=== PATIENT | male | born 1995 | race Caucasian/White ===

== ENCOUNTER 2023-09-02 15:11 | Emergency (ER) | payer OTHER, SELFPAY ==
[2023-09-02 15:17] VITALS: BP 143/90; PULSE 93; RESP 18; TEMP 36.7; O2SAT 97; BMI 31.3
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
[2023-09-02] MEDS: Diphth,Pertus(ACell),Tet Adult 0.5 ML SYRINGE IM (16:21)
[2023-09-02] MEDS: Amoxicillin/Potassium Clav 875 MG TABLET PO (16:21)
[2023-09-02] MEDS: Ibuprofen 400 MG TABLET PO (16:21)
[2023-09-02 16:41] VITALS: BP 143/90; PULSE 93; RESP 18; TEMP 36.7; O2SAT 97
== END 2023-09-02 16:41 | disposition home or self-care (01) ==
PROVIDERS: Emergency Provider Emergency Medicine
DX: T25.022A Burn of unspecified degree of left foot, initial encounter (principal); T25.021A Burn of unspecified degree of right foot, initial encounter; X08.8XXA Exposure to other specified smoke, fire and flames, initial encounter; Y93.89 Activity, other specified; Y92.9 Unspecified place or not applicable; Y99.9 Unspecified external cause status; Z23 Encounter for immunization
CPT/HCPCS: 90471; 90715; 99284